=== PATIENT | female | born 1945 | race Caucasian/White ===

== ENCOUNTER → 2016-12-10 | Outpatient (CLI) | payer MEDICARE, OTHER ==
[~2016-12-10] MED LIST: AMIODARONE PO; CALCIUM CARBON600 M1 PO; CORDARONE200 M1 PO; COREG6.25 MG PO; DULERA 100 MCG/13 GM IN; FISH OIL500 M1 PO; FLEXERIL10 MG PO; GABAPENTIN300 MG PO; HYDROCHLOROTH12.5 MG PO; LISINOPRIL20 MG PO; MEDROL DOSEPAK4 MG PO; MELATONIN10 M1 PO; METFORMIN PO; MIRALAX17 GM PO; NORVASC10 MG PO; OMEPRAZOLE40 MG PO; OXYCODON-ACETA1 EAC1 PO; PRADAXA150 MG PO; PRILOSEC PO; PRILOSEC40 MG PO; PRINIVIL10 MG PO; REGLAN10 MG PO; SENOKOT S1 TA1 PO; VITAMIN C500 M1 PO; WELCHOL625 MG PO; ZOCOR20 MG PO
--- NOTE | ~2016-12-10 | CT4 ---
[facility] A Service of [facility] & [facility] RADIOLOGY TEXT RESULTS PATIENT: SIVA MCKEON LOCATION: [facility] : 45 UNIT #: [id number] AGE: [address]: Galindo Turcios MD SEX: F ORDER DR: [id number] [address] [address] [id number] O MR#: [id number] Acc #: [id number] NAME: SIVA MCKEON : 1945 SEX: F STUDY DATE/TIME: 12/10/2016 13:34 UNIT: [facility] ROOM: STUDY DESCRIPTION: CT Abd and Pelv Wo Cont Attending Physician: Galindo Turcios M.D. Referring Physician: Galindo Turcios M.D. Ordering Physician: Galindo Turcios M.D. Primary Care Physician: Edelmira Hernandez M.D. MEDICAL IMAGING REPORT This report is preliminary unless electronic signature is present. EXAM CT of the abdomen and pelvis without contrast. INDICATIONS Renal cell cancer. The patient underwent a right renal ablation in September 2016. This is a followup study. TECHNIQUE Axial CT imaging was obtained from the dome of the diaphragm through symphysis pubis. No intravenous contrast material was administered due to the patient's abnormal laboratory values. This CT exam was performed with one or more of the following radiation dose reduction techniques: automatic exposure control, adjustment of mA and/or kV according to patient size, and iterative reconstruction. FINDINGS Images through the lung bases are clear. The previously identified solid renal mass is difficult to see on these unenhanced images, but certainly appear smaller, measuring 1.3 x 1 cm. Bilateral renal cysts are noted, as are nonobstructing stones within the inferior pole of the right kidney. Patient has a cirrhotic morphology to the liver with evidence of portal hypertension. The patient has splenomegaly, with the spleen measuring 14.2 cm in AP dimensions. Pancreas is mildly atrophic. Gallbladder is surgically absent. A low-attenuation lesion within the right lobe of the liver is unchanged when compared to the 2015 exam. It was not present on exams prior to January 2016, although it is stable in size when compared to that examination and remains indeterminate. Adrenal glands are within normal limits. There is atherosclerotic involvement of the abdominal aorta which is ectatic measuring up to 2.4 x 2.2 cm. Dense atherosclerotic calcification extends into the iliac vessels. The appendix is visualized and is within normal limits. There is colonic diverticulosis without STS. [facility] A Service of [facility] & [facility] RADIOLOGY TEXT RESULTS PATIENT: SIVA MCKEON LOCATION: [facility] : 45 UNIT #: [id number] AGE: [address]: Galindo Turcios MD SEX: F ORDER DR: evidence of diverticulitis. The uterus and urinary bladder appear normal. No free fluid or adenopathy are seen within the pelvis. Review of bony windows demonstrates some osteopenia. No aggressive osseous abnormalities are seen. IMPRESSION 1. Previously identified solid renal mass has been treated with ablation and does appear smaller although full assessment is limited in the absence of intravenous contrast material. 2. Bilateral renal cysts and nonobstructing right renal stone. 3. Cirrhotic morphology to the liver with evidence of portal hypertension, as the patient is noted to have splenomegaly. Patient is also noted have a low-attenuation lesion within the right lobe of the liver which is indeterminate. It was not present on exams prior to January 2016, but does not appear to have enlarged when compared to that exam. As imaging characteristics are not classic for hepatocellular carcinoma, I would suggest continued short-term CT surveillance. 4. Please see the body of the report for any other additional incidental findings. Dictated by... Loly Dotson M.D. THIS IS AN ELECTRONICALLY VERIFIED REPORT Loly Dotson M.D. at 12/12/2016 7:57 AM GLADYS/aleksey TD: 12/10/2016 19:16 JOB #: [id number] MEDICAL IMAGING REPORT Page 1 of 1
[2016-12-10 13:05] LABS: POC - CREATININE 1.42 mg/dL (0.44-1.03)
== END | disposition home or self-care (01) ==
LOC: SCT 12:49
PROVIDERS: Radiology Vascular & Interventional Radiology
DX: C64.1 Malignant neoplasm of right kidney, except renal pelvis (principal); N28.1 Cyst of kidney, acquired; N20.0 Calculus of kidney; K74.60 Unspecified cirrhosis of liver; K76.6 Portal hypertension; R16.1 Splenomegaly, not elsewhere classified; K76.9 Liver disease, unspecified; Z98.890 Other specified postprocedural states
CPT/HCPCS: 74176; 82565

== ENCOUNTER → 2017-01-09 | Outpatient (CLI) | payer MEDICARE, OTHER ==
--- NOTE | ~2017-01-09 | MY11 ---
[facility] A Service of [facility] / [facility] RADIOLOGY TEXT RESULTS PATIENT: SIVA MCKEON LOCATION: [facility] : 45 UNIT #: [id number] AGE: [address]: Edelmira Hernandez MD SEX: F ORDER DR: [id number] [facility] [address] [place], [place] [address] [id number] O MR#: [id number] Acc #: [id number] NAME: SIVA MCKEON : 1945 SEX: F STUDY DATE/TIME: 01/09/2017 14:49 UNIT: [facility] ROOM: STUDY DESCRIPTION: MY Mammogram Screening Dig Sharif Attending Physician: Edelmira Hernandez M.D. Referring Physician: Edelmira Hernandez M.D. Ordering Physician: Edelmira Hernandez M.D. Primary Care Physician: Edelmira Hernandez M.D. MEDICAL IMAGING REPORT This report is preliminary unless electronic signature is present EXAM Bilateral digital screening mammogram with CAD HISTORY Routine screening. No current complaints. No family history of breast cancer. COMPARISON 03/31/2014 07/08/2007. FINDINGS MLO and CC digital views of each breast were obtained. The exam was reviewed with an FDA-approved CAD device. The breasts are almost entirely fatty replaced. There has been no change. IMPRESSION No change. No evidence of malignancy. Patients over the age of 40 are entered into a reminder system with target due date for the next mammogram. A result letter will also be sent to the patient. BIRADS: 1 Negative Dictated by... Melvin Carter M.D. THIS IS AN ELECTRONICALLY VERIFIED REPORT Melvin Carter M.D. at 01/10/2017 7:05 AM FEL/psc [facility] A Service of [facility] RADIOLOGY TEXT RESULTS PATIENT: SIVA MCKEON LOCATION: [facility] : 45 UNIT #: [id number] AGE: [address]: Edelmira Hernandez MD SEX: F ORDER DR: TD: 01/09/2017 20:22 JOB #: [id number] MEDICAL IMAGING REPORT Page 1 of 1 COPY
== END | disposition home or self-care (01) ==
LOC: CWCC 14:35
DX: Z12.31 Encounter for screening mammogram for malignant neoplasm of breast (principal)
CPT/HCPCS: G0202

== ENCOUNTER → 2017-03-25 | Outpatient (CLI) | payer MEDICARE, OTHER ==
--- NOTE | ~2017-03-25 | CT3 ---
[facility] A Service of [facility] RADIOLOGY TEXT RESULTS PATIENT: SIVA MCKEON LOCATION: [facility] : 45 UNIT #: [id number] AGE: [address]: Nikunj Persaud SEX: F ORDER DR: [id number] [place] [id number] O MR#: [id number] Acc #: [id number] NAME: SIVA MCKEON : 1945 SEX: F STUDY DATE/TIME: 03/25/2017 15:06 UNIT: [facility] ROOM: STUDY DESCRIPTION: CT Abd and Pelv WWo Cont Attending Physician: Nikunj Persaud Referring Physician: Nikunj Persaud Ordering Physician: Physician Non-Staff Primary Care Physician: Edelmira Hernandez M.D. MEDICAL IMAGING REPORT This report is preliminary unless electronic signature is present. EXAM CT abdomen and pelvis without and with contrast. INDICATION Renal cell carcinoma diagnosed August 2016 status post ablation and in September 2016. Followup. Observation for response to therapy. PROCEDURE Unenhanced CT of the abdomen and pelvis. Postcontrast CT abdomen and pelvis with multiphase acquisition through the kidneys. This CT exam was performed with one or more of the following radiation dose reduction techniques: automatic exposure control, adjustment of mA and/or kV according to patient size, and iterative reconstruction. COMPARISON 07/20/2016 FINDINGS ABDOMEN WITHOUT CONTRAST: Included lung bases are clear. Previous cholecystectomy. 7 mm nonobstructing calculus in the right kidney. PELVIS WITHOUT CONTRAST: No radiodense bladder calculus. ABDOMEN WITH CONTRAST: There is post ablation change in the posterior right mid kidney, that measures approximately 2.5 cm. No convincing evidence for a persistent mass in this region. Bilateral renal cysts are similar to the previous study. No pathologically enlarged adenopathy is seen in the abdomen. Cirrhotic morphology of the liver. No enhancing liver mass. 9 mm cyst [facility] A Service of [facility] RADIOLOGY TEXT RESULTS PATIENT: SIVA MCKEON LOCATION: [facility] : 45 UNIT #: [id number] AGE: [address]: Nikunj Persaud SEX: F ORDER DR: posterior right hepatic lobe is similar. Very subtle rounded mass in segment 7 of the liver is unchanged and measures 1.6 cm. Spleen measures 13.8 cm. Adrenal glands and pancreas are unremarkable. Previous cholecystectomy. Bowel loops are nondilated. No aggressive appearing bone lesion. PELVIS WITH CONTRAST: Uncomplicated diverticula in the sigmoid colon. No pelvic adenopathy. Small fibroid exophytic from the anterior uterus is unchanged. IMPRESSION 1. Post-treatment change in the posterior right kidney with no convincing evidence for residual mass. No evidence for metastatic disease in the abdomen or pelvis. 2. Cirrhotic morphology of the liver. Stable cyst in the posterior right hepatic lobe and a stable indeterminate very subtle lesion in segment 7 of the liver, which should be followed. Dictated by... Kye Still M.D. THIS IS AN ELECTRONICALLY VERIFIED REPORT Kye Still M.D. at 04/01/2017 8:52 AM FAISAL/mihai TD: 03/26/2017 14:57 JOB #: [id number] MEDICAL IMAGING REPORT Page 1 of 1
[2017-03-25 13:06] LABS: POC - CREATININE 1.48 mg/dL (0.44-1.03)
== END | disposition home or self-care (01) ==
LOC: SCT 11:21 → CCAT 14:20 → SCT 14:20
PROVIDERS: Radiology Vascular & Interventional Radiology
DX: Z08 Encounter for follow-up examination after completed treatment for malignant neoplasm (principal); K76.89 Other specified diseases of liver; Z85.528 Personal history of other malignant neoplasm of kidney
CPT/HCPCS: 74178; 82565; Q9967

== ENCOUNTER → 2017-03-25 | Outpatient (CLI) | payer MEDICARE, OTHER ==
--- NOTE | ~2017-03-25 | CT137 ---
[facility] A Service of [facility] RADIOLOGY TEXT RESULTS PATIENT: SIVA MCKEON LOCATION: [facility] : 45 UNIT #: [id number] AGE: [address]: Edelmira Hernandez MD SEX: F ORDER DR: [id number] [place] [id number] O MR#: [id number] Acc #: [id number] NAME: SIVA MCKEON : 1945 SEX: F STUDY DATE/TIME: 03/25/2017 13:12 UNIT: SCT ROOM: STUDY DESCRIPTION: CT Lung Screening annual Attending Physician: Edelmira Hernandez M.D. Referring Physician: Edelmira Hernandez M.D. Ordering Physician: Edelmira Hernandez M.D. Primary Care Physician: Edelmira Hernandez M.D. MEDICAL IMAGING REPORT This report is preliminary unless electronic signature is present. EXAM CT lung cancer screening INDICATIONS Lung cancer screening. 57 pack year smoking history. PROCEDURE Unenhanced low-dose CT of the chest performed per lung cancer screening protocol. CTDI 2.96 mGy. Total DLP 228 mGy-cm. This CT exam was performed with one or more of the following radiation dose reduction techniques: automatic exposure control, adjustment of mA and/or kV according to patient size, and iterative reconstruction. COMPARISON 01/27/2016 FINDINGS 8.0 mm lobulated nodule left upper lobe previously 4.0 mm. No other nodules. No adenopathy. No clearly acute finding in the included upper abdomen. Surface nodularity of the liver suspicious for changes of chronic liver disease. No aggressive appearing bone lesion. IMPRESSION Lobulated 7.0-8.0 mm nodule in the left upper lobe has increased in size since 01/27/2016. Lung-RADS category 4A: Suspicious. Per the ACR Lung-RADS recommendations, recommend a 3-month followup low-dose chest CT. This nodule is just at the size limits for PET. PET could be attempted, but the nodule may require additional followup despite PET/CT. [facility] A Service of [facility] RADIOLOGY TEXT RESULTS PATIENT: SIVA MCKEON LOCATION: [facility] : 45 UNIT #: [id number] AGE: [address]: Edelmira Hernandez MD SEX: F ORDER DR: Dictated by... Kye Still M.D. THIS IS AN ELECTRONICALLY VERIFIED REPORT Kye Still M.D. at 04/01/2017 8:52 AM Abdifatah TD: 03/26/2017 13:15 JOB #: [id number] MEDICAL IMAGING REPORT Page 1 of 1
== END | disposition home or self-care (01) ==
LOC: SCT 11:15
DX: F17.210 Nicotine dependence, cigarettes, uncomplicated (principal)
CPT/HCPCS: G0297